=== PATIENT | male | born 1995 | race Caucasian/White ===

== ENCOUNTER 2023-07-04 09:51 | Emergency (ER) | payer SELFPAY | END 2023-07-04 10:22 | disposition home or self-care (01) | LOC: EEVIPCON 09:51 → BURERS 09:51 | DX: S09.90XA Unspecified injury of head, initial encounter (principal); W22.8XXA Striking against or struck by other objects, initial encounter; Y92.149 Unspecified place in prison as the place of occurrence of the external cause ==

== ENCOUNTER 2023-07-04 14:01 | Emergency (ER) | payer SELFPAY | END 2023-07-04 17:11 | disposition home or self-care (01) | LOC: BURERS 14:01 | DX: S43.402A Unspecified sprain of left shoulder joint, initial encounter (principal); S60.811A Abrasion of right wrist, initial encounter; M89.8X5 Other specified disorders of bone, thigh; M24.851 Other specific joint derangements of right hip, not elsewhere classified; Y04.0XXA Assault by unarmed brawl or fight, initial encounter ==